=== PATIENT | female | born 1980 | race Asian ===

== ENCOUNTER 2019-09-09 20:50 | Emergency (ER) | payer OTHER ==
[~2019-09-09] VITALS: Ht 172.7 cm; Wt 108.9 kg
[2019-09-09 21:24] VITALS: BP 157/86; TEMP 97.8
== END 2019-09-09 21:24 | disposition home or self-care (01) ==
LOC: ED 20:50
DX: R55 Syncope and collapse (principal)
CPT/HCPCS: 82962; 99281